=== PATIENT | male | born 1970 | race Caucasian/White ===

== ENCOUNTER 2017-10-16 07:37 | Emergency (ER) | payer OTHER ==
[2017-10-16] MEDS ORDERED: KETOROLAC 60 MG/2 ML VIAL IVP STA (07:45)
[2017-10-16] MEDS ORDERED: Diph,Pert(Acell),Tet Vac 0.5 ML SYR IM ONE (07:45)
[2017-10-16] MEDS ORDERED: 0.9 % SODIUM CHLORIDE 1,000 ML BAG IV ONE (07:45)
[2017-10-16] MEDS ORDERED: CEFAZOLIN 1 Gram 1 GM/50 ML BAG IVPB ONE (07:46)
--- NOTE | 2017-10-16 07:50 | Emergency Department Record ---
History of Present Illness - General Chief complaint: Extremity Problem Stated complaint: HAND INJURY Time Seen by Provider: 10/16/17 07:45 Source: Patient Mode of Arrival: Ambulatory Limitations: No limitations - History of Present Illness Initial comments: 46 yo male presents with a right hand injury from work. He was carrying a 50 pound piece of metal and tripped. When he landed the metal crushed his handed against the floor. He has pain, swelling and several laceration. His last tetanus was over 7-8 years ago. No allergies. He is otherwise normally healthy. MD Complaint: Extremity pain, Joint pain -: Year(s) Location: Right, Hand History of Same: No -: Yes Arthralgia Radiation: Distal Severity scale (1-10): 10 Quality: Aching Consistency: Constant Improves with: Nothing Worsens with: Nothing Associated Symptoms: Denies other symptoms - Related Data Home Medications Medication Instructions Recorded Confirmed Last Taken Ranitidine HCl 150 mg PO DAILY 10/16/17 10/16/17 Unknown Previous Rx's Medication Instructions Recorded Cephalexin [Keflex] 500 mg PO TID #21 cap 10/16/17 Hydrocodone/Acetaminophen [[place]nee 1 tab PO Q6H PRN #15 tab 10/16/17 5mg/325mg] Allergies Allergy/AdvReac Type Severity Reaction Status Date / Time No Known Drug Allergies Allergy Verified 10/16/17 07:47 Travel Screening - Travel/Exposure Within Last 30 Days Have you traveled within the last 30 days?: No Review of Systems Constitutional: Denies: Chills, Fever, Weakness Eyes: Denies: Eye discharge, Eye pain ENT: Denies: Congestion, Throat pain Respiratory: Denies: Cough Cardiovascular: Denies: Chest pain, Syncope Endocrine: Denies: Fatigue Gastrointestinal: Denies: Abdominal pain, Diarrhea, Nausea, Vomiting Genitourinary: Denies: Dysuria, Frequency, Hematuria Musculoskeletal: Reports: Arthralgia, Joint swelling, Myalgia. Denies: Back pain, Neck pain Skin: Reports: Other. Denies: Bruising, Change in color, Rash Neurological: Denies: Confusion, Headache, Weakness Psychiatric: Denies: Anxiety Hematological/Lymphatic: Denies: Easy bleeding, Easy bruising, Swollen glands Past Medical History - SOCIAL HISTORY Smoking Status: Former smoker - RESPIRATORY Hx Respiratory Disorders: No - CARDIOVASCULAR Hx Cardio Disorders: No - NEURO Hx Neuro Disorders: No - GI Hx GI Disorders: No - Hx Genitourinary Disorders: No - ENDOCRINE Hx Endocrine Disorders: No - MUSCULOSKELETAL Hx Musculoskeletal Disorders: No - PSYCH Hx Psych Problems: No - HEMATOLOGY/ONCOLOGY Hx Hematology/Oncology Disorders: No Physical Exam - General General Appearance: Alert, Oriented x3, Cooperative, No acute distress Limitations: No limitations - Head Head exam: Atraumatic, Normal inspection - Eye Eye exam: Normal appearance - ENT ENT exam: Normal exam Ear exam: Normal external inspection Nasal Exam: Normal inspection Mouth exam: Normal external inspection - Neck Neck exam: Normal inspection, Full ROM. negative: Tenderness - Respiratory Respiratory exam: Normal lung sounds bilaterally. negative: Respiratory distress - Cardiovascular Cardiovascular Exam: Regular rate, Normal rhythm, Normal heart sounds Peripheral Pulses: 2+: Radial (R) - Rectal Rectal exam: Deferred - exam: Deferred - Extremities Extremities exam: Joint swelling, Normal capillary refill, Tenderness. negative : Normal inspection, Full ROM Image of Hand: 1 - 1.5cm laceration - Back Back exam: Reports: Full ROM - Neurological Neurological exam: Alert, Oriented X3 - Psychiatric Psychiatric exam: Normal affect, Normal mood - Skin Skin exam: Dry, Intact, Normal color, Warm Course Vital Signs 10/16/17 07:43 Temperature 98.1 F Pulse Rate 64 Respiratory 20 Rate Blood Pressure 107/56 Pulse Ox 100 - Reevaluation(s) Reevaluation #1: 10/16/17 08:00 Digital Block: Betadine Prep 50/50 Lidocaine 1% Plain with Sensorcaine Plain 6 ml for the index and middle finger Clean the hand with warm soapy water followed by NS irrigation Gauze applied XR ordered. 10/16/17 09:31 I DEJAH Ibrahim The patient will be seen at 1pm by the [employer]GER with surgery likely tomorrow Antibiotics given in the ED and Rx provided The patient was splinted prior to DC for immobilization Copy of the XR sent with the patient Disposition Disposition: Discharge Clinical Impression: Flexor tendon laceration of finger with open wound Qualifiers: Encounter type: initial encounter Qualified Code(s): S56.129A - Laceration of flexor muscle, fascia and tendon of unspecified finger at forearm level, initial encounter Disposition: Home, Self-Care Condition: (1) Good Instructions: Laceration (ED) Additional Instructions: Keep the area dry and clean You have an appointment at 1pm today with Dr Ibrahim's Nurse Practitioner Return if red, warm, pus, or any new concerns. Take the Keflex as directed Prescriptions: Cephalexin [Keflex] 500 mg PO TID #21 cap Hydrocodone/Acetaminophen [[place] 5mg/325mg] 1 tab PO Q6H PRN #15 tab PRN Reason: Pain - General Referrals: RAGHU IBRAHIM M.D. [MEDICAL DOCTOR] - Forms: Patient Portal Access Time of Disposition: 09:33 Quality - Quality Measures Quality Measures: N/A - Blood Pressure Screening Does Patient Have Any of the Following: No Blood Pressure Classification: Pre-Hypertensive BP Reading Systolic Measurement: 125 Diastolic Measurement: 85 Screening for High Blood Pressure: < Pre-Hypertensive BP, F/U Documented > [ [id number]] Pre-Hypertensive Follow-up Interventions: Referral to alternative/primary care provider.
--- NOTE | 2017-10-17 09:23 | RADIOLOGY REPORT ---
EXAM: RIGHT HAND HISTORY: CRUSH INJURY TO RIGHT HAND, SMASHED BETWEEN FIFTY POUND METAL PIECES AT WORK WITH LACERATIONS TO PROXIMAL AND MIDDLE PHALANGES OF RIGHT INDEX AND MIDDLE FINGERS. TECHNIQUE: Four views of the right hand were obtained. Comparison: None. Encounter: Initial. FINDINGS: There is some gauze or other dressing overlying the proximal aspects of the second, third and fourth fingers creating some artifact. No definite fracture or dislocation identified involving the right hand. There are small metallic foreign bodies evident in the soft tissues of the distal aspect of the second and third fingers. This is apparently not the site of current injury and presumably therefore represent small chronic metallic foreign bodies, however, there is a short linear metallic foreign body in the soft tissues along the dorsal aspect of the mid portion of the proximal phalanx of the index finger and a couple tiny punctate foreign bodies in the superficial soft tissues at the level of the distal end of the proximal phalanx of the fourth finger. These may be acute in nature and clinical correlation is suggested. There is a small cystic change seen in the head of the second and third metacarpals as well as the distal end of the proximal phalanx of the third finger probably all degenerative in nature. Some soft tissue swelling is seen involving the second and third fingers. IMPRESSION: 1. NO DEFINITE ACUTE FRACTURE OR DISLOCATION OF THE RIGHT HAND EVIDENT. 2. SOFT TISSUE SWELLING INVOLVING THE SECOND AND THIRD FINGERS. 3. TINY METALLIC DENSITIES IN THE SOFT TISSUES AT THE LEVEL OF THE PROXIMAL PHALANGES OF THE SECOND AND FOURTH FINGERS WHICH ARE PRESUMABLY ACUTE. SMALL METALLIC DENSITIES AT THE LEVEL OF THE DISTAL PHALANGES OF THE SECOND AND THIRD FINGERS ARE PRESUMABLY CHRONIC DESCRIBED ABOVE. JOB NUMBER: [id number] [facility]
== END 2017-10-16 09:56 | disposition home or self-care (01) ==
LOC: ER 07:37
DX: S56.123A Laceration of flexor muscle, fascia and tendon of right middle finger at forearm level, initial encounter (principal); S56.121A Laceration of flexor muscle, fascia and tendon of right index finger at forearm level, initial encounter; W01.198A Fall on same level from slipping, tripping and stumbling with subsequent striking against other object, initial encounter; Y92.63 Factory as the place of occurrence of the external cause; Y99.0 Civilian activity done for income or pay
CPT/HCPCS: 64450 ×2; 29125; 99284 ×2; 96372; 96365; 96375; 73130; J0690; 90715; J1885; J7030